=== PATIENT | male | born 1985 | race Caucasian/White ===

== ENCOUNTER 2016-12-03 23:34 | Emergency (ER) | payer OTHER ==
[~2016-12-03 23:34] MED LIST: ALBUTEROL SULF8.5 G1 IH; ALBUTEROL17 GM INH; AMOXICILLIN875 MG PO; BENADRYL25 MG PO; BENTYL20 M1 PO; DIAZEPAM5 M2 PO; EPIPEN AUTO-INJE1 EA IM; EPIPEN0.3 MG/0.1; EPIPEN0.3 MG/0.1 IM; FLEXERIL10 MG PO; GUIATUSS AC SY120 ML PO; MOTRIN400 MG PO; MOTRIN600 MG PO; MOTRIN800 MG PO; MUCINEX DM ER1 EACH PO; NO HOME MEDS; NORCO 5/3251 TA2 NG; PENICILLIN V P500 MG PO; PERCOCET 5/3251 TAB PO; PERCOCET 5MG/AP1 TA2 PO; PHENERGAN VC W120 ML PO; PHENERGAN25 MG PO; PREDNISONE20 MG PO; PROVENTIL HFA6.7 GM IH; TESSALON PERLE100 MG PO; VENTOLIN HFA18 G1 INH; VIBRAMYCIN100 MG PO; VICODIN 5/500 T1 TAB PO; ZITHROMAX250 MG PO; ZITHROMAX250MG Z-PAK PO; ZOFRAN ODT4 MG PO
[2016-12-04 00:37] LABS: BASO % 0.2 % (0-2); EOS % 0.3 % (0-7); HCT-HEMATOCRIT 42.4 % (36.0-53.5); HGB-HEMOGLOBIN 14.8 gm/dl (13.5-17.0); IMMATURE GRANULOCYTES ABSOLUTE 0.03 tho/cmm (0-0.03); IMMATURE GRANULOCYTES PERCENT 0.2 % (0-0.3); LYMPH % 14.1 % (20-45); LYMPH ABSOLUTE COUNT 1.7 tho/cmm (0.8-4.5); MCH (MEAN CORPUSCULAR HGB) 31.7 pg (28.0-32.0); MCHC MEAN CORPUSCULAR HGB CONC 34.9 % (32.0-36.0); MCV (MEAN CELL VOLUME) 90.8 fl (82.0-96.0); MEAN PLATELET VOLUME 10.6 cmc (9.4-12.4); MONO % 5.5 % (0-12); MONOCYTE ABSOLUTE COUNT 0.7 tho/cmm (0.0-1.2); NEUTROPHIL ABSOLUTE COUNT 9.8 tho/cmm (1.6-8.0); NEUTROPHIL-AUTOMATED 9.8 tho/cmm (1.6-8.0); NEUTROPHILS % 79.7 % (40-80); PLATELET COUNT 204 tho/cmm (150-450); RED BLOOD COUNT 4.67 mil/cmm (4.40-5.70); RED CELL DISTRIBUTION WIDTH 12.5 % (12.4-16.4); WHITE BLOOD COUNT 12.3 tho/cmm (4.0-10.0)
[2016-12-04 00:49] LABS: ANION GAP 15 mmol/L (0-20); BLOOD UREA NITROGEN 7 mg/dl (6-24); CALCIUM 8.7 mg/dl (8.5-10.5); CARBON DIOXIDE-VENOUS 24 mmol/L (22-32); CHLORIDE 104 mmol/l (96-110); CREATININE 1.01 mg/dl (0.60-1.30); GLUCOSE 93 mg/dL (70-110); POTASSIUM 3.5 mmol/L (3.7-5.1); SODIUM 139 mmol/L (135-145); eGFR VALUE FOR BLACK >90 mL/Min
[2016-12-04] MEDS ORDERED: GUAIFENESIN-COD10 ML PO (01:16)
== END 2016-12-04 01:24 ==
LOC: EDMED 23:34
PROVIDERS: Emergency Medicine
DX: J06.9 Acute upper respiratory infection, unspecified (principal); R53.1 Weakness; R19.7 Diarrhea, unspecified; R05 Cough; I10 Essential (primary) hypertension; J45.909 Unspecified asthma, uncomplicated; F41.9 Anxiety disorder, unspecified; F17.200 Nicotine dependence, unspecified, uncomplicated